=== PATIENT | female | born 1935 | race Caucasian/White ===

== ENCOUNTER 2018-11-09 18:02 | Inpatient (IN) | payer MEDICARE, OTHER ==
[~2018-11-09] VITALS: Ht 154.9 cm; Wt 58.2 kg
[~2018-11-09 18:02] MED LIST: ACET500T33 PO; ALEN70TA5 PO; ASPI-482 PO; CALC1TAB75 PO; CITA20TA6 PO; COD1CAPS2 PO; DONE23TA3 PO; EZET1TAB35 PO; FOLI1TAB16 PO; MEMA10TA PO; MULT-18 PO; OMEP20CA5 PO; POLY17PO5 PO; TOLT4CAP PO; [UNRECOGNIZED DRUG - CODE] PO
[2018-11-09 18:36] LABS: BASO # 0.1 x10^3/uL (0.0-0.2); BASO % 0 % (0-3); EOS # 0.1 x10^3/uL (0.0-0.7); EOS % 1 % (0-3); HEMATOCRIT 39.3 % (36.0-47.0); HEMOGLOBIN 13.3 g/dL (12.0-15.5); LYMPH # 1.4 x10^3/uL (1.0-4.8); LYMPH % 11 % (24-48); MEAN CORPUSCULAR HEMOGLOBIN 30 pg (25-35); MEAN CORPUSCULAR HGB CONC 34 g/dL (31-37); MEAN CORPUSCULAR VOLUME 89 fL (79-100); MONO # 0.7 x10^3/uL (0.0-1.1); MONO % 5 % (0-9); NEUT # 10.9 x10^3uL (1.8-7.7); NEUT % 83 % (31-73); PLATELET COUNT 277 x10^3/uL (140-400); RED BLOOD COUNT 4.41 x10^6/uL (3.50-5.40); RED CELL DISTRIBUTION WIDTH 12.8 % (11.5-14.5); WHITE BLOOD COUNT 13.1 x10^3/uL (4.0-11.0)
[2018-11-09] MEDS ORDERED: IV NORMAL SALINE 1,000ML 1,000 ML IV ONE (18:45)
[2018-11-09 18:47] LABS: ALBUMIN 3.2 g/dL (3.4-5.0); ALBUMIN/GLOBULIN RATIO 0.9 (1.0-1.7); CALCIUM 8.7 mg/dL (8.5-10.1); CREATININE 0.8 mg/dL (0.6-1.0); GFR 68.8; POTASSIUM 3.8 mmol/L (3.5-5.1); TOTAL BILIRUBIN 0.6 mg/dL (0.2-1.0); TOTAL PROTEIN 6.8 g/dL (6.4-8.2)
[2018-11-09 18:57] LABS: INFLUENZA A PATIENT NEGATIVE (NEGATIVE); INFLUENZA B PATIENT NEGATIVE (NEGATIVE)
--- NOTE | 2018-11-09 18:57 | PHYS DOC ---
Adult General Chief Complaint Chief Complaint cough HPI HPI 83 years old female with multiple medical problem including Alzheimer resident and penitent[facility] presented to the emergency department with cough shortness of breath oxygen saturation upon arrival to the emergency department 87% with a temperature of 100.5 patient is a very poor historian and unable to provide any history most of the history was taken from the nurses documentation Review of Systems Review of Systems Limited due to patient's mental status Current Medications Current Medications Current Medications Medications (Trade) Dose Ordered Sig/Ruben Start Time Stop Time Status Last Admin Dose Admin Albuterol Sulfate (Ventolin) 2.5 mg 1X ONCE 11/09/18 19:00 11/09/18 19:01 Levofloxacin/ Dextrose 150 ml @ 150 mls/hr 1X ONCE 11/09/18 19:00 11/09/18 19:59 UNV Methylprednisolone Sodium Succinate (SOLU-Medrol 125MG VIAL) 125 mg 1X ONCE 11/09/18 19:00 11/09/18 19:01 Sodium Chloride 1,000 ml @ 1,000 mls/hr 1X ONCE 11/09/18 18:45 11/09/18 19:44 11/09/18 18:27 1,000 MLS/HR Vancomycin HCl 1 gm/Sodium Chloride 250 ml @ 250 mls/hr 1X ONCE 11/09/18 19:00 11/09/18 19:59 UNV Allergies Allergies Allergies Coded Allergies Type Severity Reaction Last Updated Verified lidocaine Allergy Unknown 10/31/13 Yes Physical Exam Physical Exam [] HENT: Normocephalic, atraumatic, bilateral external ears normal, oropharynx moist, no oral exudates, nose normal. [] Eyes: PERRLA, EOMI, conjunctiva normal, no discharge. [] Neck: Normal range of motion, no tenderness, supple, no stridor. [] Cardiovascular:Heart rate regular rhythm, no murmur [] Lungs & Thorax: Diminished bilaterally wheezing] Abdomen: Bowel sounds normal, soft, no tenderness, no masses, no pulsatile masses. [] Skin: Warm, dry, no erythema, no rash. [] Back: No tenderness, no CVA tenderness. [] Extremities: No tenderness, no cyanosis, no clubbing, ROM intact, no edema. [] Neurologic: Alert and oriented X 3, normal motor function, normal sensory function, no focal deficits noted. [] Psychologic: Affect normal, judgement normal, mood normal. [] Current Patient Data Vital Signs Vital Signs Date Time Temp Pulse Resp B/P (MAP) Pulse Ox O2 Delivery O2 Flow Rate FiO2 11/09/18 18:27 99.3 116 17 90 Nasal Cannula 4.0 Lab Results Laboratory Tests Test 11/09/18 18:15 White Blood Count 13.1 x10^3/uL (4.0-11.0) H Red Blood Count 4.41 x10^6/uL (3.50-5.40) Hemoglobin 13.3 g/dL (12.0-15.5) Hematocrit 39.3 % (36.0-47.0) Mean Corpuscular Volume 89 fL (79-100) Mean Corpuscular Hemoglobin 30 pg (25-35) Mean Corpuscular Hemoglobin Concent 34 g/dL (31-37) Red Cell Distribution Width 12.8 % (11.5-14.5) Platelet Count 277 x10^3/uL (140-400) Neutrophils (%) (Auto) 83 % (31-73) H Lymphocytes (%) (Auto) 11 % (24-48) L Monocytes (%) (Auto) 5 % (0-9) Eosinophils (%) (Auto) 1 % (0-3) Basophils (%) (Auto) 0 % (0-3) Neutrophils # (Auto) 10.9 x10^3uL (1.8-7.7) H Lymphocytes # (Auto) 1.4 x10^3/uL (1.0-4.8) Monocytes # (Auto) 0.7 x10^3/uL (0.0-1.1) Eosinophils # (Auto) 0.1 x10^3/uL (0.0-0.7) Basophils # (Auto) 0.1 x10^3/uL (0.0-0.2) Sodium Level 139 mmol/L (136-145) Potassium Level 3.8 mmol/L (3.5-5.1) Chloride Level 102 mmol/L (98-107) Carbon Dioxide Level 24 mmol/L (21-32) Anion Gap 13 (6-14) Blood Urea Nitrogen 18 mg/dL (7-20) Creatinine 0.8 mg/dL (0.6-1.0) Estimated GFR (Cockcroft-Gault) 68.8 BUN/Creatinine Ratio 23 (6-20) H Glucose Level 118 mg/dL (70-99) H Calcium Level 8.7 mg/dL (8.5-10.1) Total Bilirubin 0.6 mg/dL (0.2-1.0) Aspartate Amino Transferase (AST) 18 U/L (15-37) Alanine Aminotransferase (ALT) 15 U/L (14-59) Alkaline Phosphatase 78 U/L (46-116) Total Protein 6.8 g/dL (6.4-8.2) Albumin 3.2 g/dL (3.4-5.0) L Albumin/Globulin Ratio 0.9 (1.0-1.7) L EKG EKG [] Radiology/Procedures Radiology/Procedures [] Course & Med Decision Making Course & Med Decision Making Pertinent Labs and Imaging studies reviewed. (See chart for details) [] Final Impression Final Impression [] Problems: (1) Lower respiratory tract infection (2) Acute lower respiratory tract infection (3) Nosocomial lower respiratory tract infection Dragon Disclaimer Dragon Disclaimer This electronic medical record was generated, in whole or in part, using a voice recognition dictation system. LATRICE ACKERMAN MD Nov 09, 2018 18:57
[2018-11-09] MEDS ORDERED: ACETAMINOPHEN 325 MG TABLET PO PRN (19:00)
[2018-11-09] MEDS ORDERED: methylPREDNISolone SOD SUCC PF 125 MG/2 ML VIAL. IV ONE (19:00)
[2018-11-09] MEDS ORDERED: VANCOMYCIN 1 GM in IV NORMAL SALINE 250ML 250 ML IV ONE (19:00)
[2018-11-09] MEDS ORDERED: ALBUTEROL SULFATE 2.5 MG/3 ML NEBU. NEB ONE (19:00)
[2018-11-09] MEDS ORDERED: ONDANSETRON PF 4 MG/2 ML VIAL. IV PRN (19:00)
[2018-11-09] MEDS ORDERED: VANCOMYCIN 1 GM VIAL. ONE (19:07)
[2018-11-09] MEDS ORDERED: IV NORMAL SALINE 250ML 250 ML ONE (19:07)
[2018-11-09] MEDS: IV NORMAL SALINE 1,000ML 1,000 ML IV SCH (19:20)
[2018-11-09 19:46] LABS: BILIRUBIN,URINE NEG (NEG); CLARITY,URINE CLEAR; COLOR,URINE YELLOW; GLUCOSE,URINE NEG (NEG); NITRITE,URINE NEG (NEG); UROBILINOGEN,URINE 0.2 mg/dL (0.2 mg/dL)
[2018-11-09 19:47] LABS: BACTERIA,URINE FEW /HPF (0-FEW); RBC,URINE 20-40 /HPF (0-2); SQUAMOUS EPITHELIAL CELL,UR MOD /LPF
[2018-11-09 21:00] VITALS: BP 127/77
[2018-11-09] MEDS ORDERED: MAGN2400 PO (21:52)
[2018-11-09] MEDS ORDERED: HYDR-2155 PO (21:52)
[2018-11-09] MEDS ORDERED: BISA10SU2 RC (21:52)
[2018-11-09] MEDS ORDERED: MAGN400O7 PO (21:52)
[2018-11-09] MEDS ORDERED: SENN-80 PO (21:52)
[2018-11-09] MEDS ORDERED: LORA0.5T PO (21:52)
[2018-11-09 22:56] VITALS: BP 135/69
[2018-11-09] MEDS: IPRATRPIUM/ALBUTEROL 0.5/2.5MG 3 ML NEBU. NEB SCH (22:56)
--- NOTE | 2018-11-10 00:17 | RAD ---
Examination: CHEST AP ONLY History: Short of air, cough, congestion Comparison/Correlation: None Findings: Portable frontal view of the chest was obtained. Heart size and bony vasculature are normal. Minimal right perihilar scarring or linear atelectasis is present. Osteopenia noted. Impression: No focal infiltrate. Electronically signed by: Fareed Bear MD (11/10/2018 12:13 AM) [facility]
--- NOTE | 2018-11-10 04:01 | EKG ---
[address] [address] Test Date: 2018-11-09 Test Time: 19:04:26 Pat Name: ADAM KITCHEN Department: Room: Gender: F Kitchen Runner: PITO: [id number] Requested By: LATRICE ACKERMAN Order Number: [id number] Reading MD: Measurements Intervals [place] Rate: 116 P: -22 AR: 150 QRS: -32 QRSD: 76 T: 63 QT: 360 QTc: 507 Interpretive Statements SINUS TACHYCARDIA ABNORMAL LEFT AXIS DEVIATION LOW LIMB LEAD VOLTAGE LEFT ANTERIOR FASCICULAR BLOCK T ABNORMALITY IN HIGH LATERAL LEADS ABNORMAL ECG RI6.01 Unconfirmed report No previous ECG available for comparison
[2018-11-10] MEDS: IPRATRPIUM/ALBUTEROL 0.5/2.5MG 3 ML NEBU. NEB SCH ×4 (05:27→20:59)
[2018-11-10] MEDS: IV NORMAL SALINE 1,000ML 1,000 ML IV SCH ×4 (05:28→10:16)
[2018-11-10 05:45] VITALS: BP 135/81
[2018-11-10 06:17] LABS: BASO % 0 % (0-3); EOS % 0 % (0-3); HEMATOCRIT 40.1 % (36.0-47.0); HEMOGLOBIN 13.7 g/dL (12.0-15.5); LYMPH # 0.8 x10^3/uL (1.0-4.8); LYMPH % 11 % (24-48); MEAN CORPUSCULAR HEMOGLOBIN 31 pg (25-35); MEAN CORPUSCULAR HGB CONC 34 g/dL (31-37); MEAN CORPUSCULAR VOLUME 91 fL (79-100); MONO # 0.1 x10^3/uL (0.0-1.1); MONO % 1 % (0-9); NEUT # 6.5 x10^3uL (1.8-7.7); NEUT % 88 % (31-73); PLATELET COUNT 236 x10^3/uL (140-400); WHITE BLOOD COUNT 7.4 x10^3/uL (4.0-11.0)
[2018-11-10 06:44] LABS: ALBUMIN 3.3 g/dL (3.4-5.0); ALBUMIN/GLOBULIN RATIO 0.8 (1.0-1.7); CALCIUM 8.6 mg/dL (8.5-10.1); GFR 53.2; POTASSIUM 3.3 mmol/L (3.5-5.1); TOTAL BILIRUBIN 0.6 mg/dL (0.2-1.0); TOTAL PROTEIN 7.3 g/dL (6.4-8.2)
[2018-11-10] MEDS ORDERED: MAGNESIUM HYDROXIDE 2,400 MG/30 ML ORAL.SUSP. PO PRN (06:45)
[2018-11-10] MEDS ORDERED: BISACODYL 10 MG SUPP.RECT PR PRN (06:45)
[2018-11-10] MEDS ORDERED: PIP/TAZO PER PHARMACY MC PRN (07:15)
[2018-11-10] MEDS: NORMAL SALINE IV SCH ×2 (07:21→08:45)
[2018-11-10] MEDS: ASPIRIN 81 MG TAB.CHEW PO SCH (07:53)
[2018-11-10] MEDS: SENNOSIDES 8.6 MG TABLET PO SCH ×2 (07:53→21:00)
[2018-11-10] MEDS: LORazepam 0.5 MG TABLET PO SCH (07:53)
[2018-11-10] MEDS: HYDROcodone/APAP 5/325MG 1 TAB TABLET PO SCH ×2 (07:53→21:29)
[2018-11-10] MEDS: PIPERACILLIN/TAZOBACTAM 3.375 GM in IV NORMAL SALINE 50ML 50 ML IV SCH ×3 (08:27→18:06)
[2018-11-10] MEDS ORDERED: POLYETHYLENE GLYCOL 3350 17 GM PACKET. PO PRN (09:00)
[2018-11-10] MEDS ORDERED: MAGNESIUM HYDROXIDE 2,400 MG/30 ML ORAL.SUSP. PO SCH (09:00)
[2018-11-10] MEDS ORDERED: BENZONATATE 100 MG CAPSULE. PO SCH (09:00)
[2018-11-10] MEDS ORDERED: BENZONATATE 100 MG CAPSULE. PO PRN (09:00)
[2018-11-10] MEDS: guaiFENesin DM 200MG/20MG 10 ML SYRUP PO PRN ×2 (09:44→21:30)
[2018-11-10 11:08] VITALS: BP 132/58
[2018-11-10 14:49] VITALS: BP 117/79
--- NOTE | 2018-11-10 15:17 | HP ---
ADMIT DATE: 11/09/2018 HISTORY OF PRESENT ILLNESS: The patient is an 83-year-old female patient, a resident at [facility] and [facility], whom I have seen there yesterday per the nursing staff request she was febrile and clearly very delirious and therefore I recommended the patient be transferred to the Emergency Room for further evaluation and treatment. She was indeed seen in the Emergency Room of [facility] where she was evaluated, where she was found to have mild leukocytosis. She was slightly tachypneic, tachycardic and her urinalysis showed that it was in fact unremarkable. Chest x-ray was unremarkable. Her influenza A and B were negative. The patient was admitted with diagnosis of sepsis as her lactic acid was high at 2.6 and was admitted with a questionable healthcare-associated pneumonia and was treated with IV vancomycin, Zosyn and Levaquin. PAST MEDICAL HISTORY: Significant for anxiety, osteoporosis, osteoarthritis and severe dementia. PAST SURGICAL HISTORY: Significant for she underwent left hip pinning. ALLERGIES: SHE IS ALLERGIC TO LIDOCAINE. MEDICATIONS: She is currently on following medications: She is on aspirin 81 mg once a day, hydrocodone/APAP 1 tablet every twice a day, lorazepam 0.5 mg daily, bisacodyl 10 mg rectally daily p.r.n. for constipation, milk of magnesia 30 mL p.o. daily p.r.n., polyethylene glycol 17 grams daily and senna 1 tablet twice a day. FAMILY HISTORY: Noncontributory. SOCIAL HISTORY: She is a resident at [facility] and [facility]. She does not smoke, drink alcohol or use any recreational drugs. Her daughter is her DPOA. REVIEW OF SYSTEMS: Unobtainable. The patient is extremely demented. PHYSICAL EXAMINATION: GENERAL: On arrival to the Emergency Room, the patient was somewhat delirious, pale, but no jaundice or cyanosis. No lymphadenopathy, no thyromegaly. No jugular venous distension. No lower limb edema. VITAL SIGNS: Her heart rate was 116, blood pressure was 144/75, temperature was 99.3, respiratory rate was 17 and oxygen saturation was 90% on 4 liters of oxygen. HEAD, EYES, EARS, NOSE AND THROAT: Showed normocephalic, atraumatic. NECK: Supple. HEART: Showed normal first and second heart sounds. No gallop, rub or murmur. CHEST: Clear to auscultation. No crepitation or rhonchi. ABDOMEN: Slightly distended, soft, nontender. NEUROLOGIC: She is extremely demented without any obvious lateralizing sign. All cranial nerves intact. EXTREMITIES: She moves extremities spontaneously. However, she is mostly bedbound, chair bound. LABORATORY DATA: Her lab work showed a white cell count of 13,100, hemoglobin 13, hematocrit 39, MCV 89 and platelet count of 277,000 with normal manual differential. Her chemistry showed a serum sodium 139, potassium 3.8, chloride 102, bicarbonate 24, anion gap of 13, BUN 18, creatinine 0.8, estimated GFR was 68 mL per minute. Her glucose 111, calcium was 8.7. Total bilirubin, AST, ALT, alkaline phosphatase were normal. Her total protein was 6.8, albumin 3.2. Urinalysis showed the urine was yellow, clear with a pH of 7, specific gravity of 1.020. There was trace of protein. The urine was negative for glucose, ketones, moderate amount of blood, negative for nitrite and bilirubin as well as leukocyte esterase. There were 20-40 rbc's and 1-4 wbc's and very few bacteria. Her nasal screen for MRSA by PCR was negative and her influenza A and B were negative. Her chest x-ray showed that the heart size and pulmonary vasculature are normal. Minimal right perihilar scarring. Linear atelectasis present. Osteopenia is noted. ASSESSMENT AND PLAN: The patient was admitted and was started on all her other medication. Start her also on Zosyn, vancomycin as well as Levaquin. After obtaining the urine and blood culture. HECTOR RUST MD DR: EMEKA/aide JOB#: [id number] / [id number]
--- NOTE | 2018-11-10 19:20 | PN ---
DATE: 11/10/2018 SUBJECTIVE: The patient is resting, slightly propped up in bed, in no apparent respiratory distress. She is awake, alert, but continued to be confused. The patient said that she has episodes of agitation. OBJECTIVE: GENERAL: When I examined her, she was slightly pale, but no jaundice, cyanosis, or thyromegaly. No jugular venous distension. No limb edema. VITAL SIGNS: Her heart rate was 106, blood pressure 132/58, temperature was 98.1, respiratory rate 20, and oxygen saturation was 93% on 2 liters of oxygen by nasal cannula. HEAD, EYES, EARS, NOSE AND THROAT: Showed normocephalic, atraumatic. NECK: Supple. HEART: Showed normal first and second heart sounds. No gallop, rub or murmur. CHEST: Clear to auscultation. No crepitation or rhonchi. ABDOMEN: Distended, soft, nontender. No guarding or rigidity. No organomegaly. Hernial orifice intact. Bowel sounds normal. NEUROLOGIC: She is demented without any obvious lateralizing signs. Cranial nerves intact. She moves her upper extremities and lower extremities; however, she is mostly bedbound, chair bound. Her intake was 2380, output was 1250. LABORATORY DATA: Her lab work this morning showed his serum sodium 343, potassium 3.3, chloride 104, bicarbonate 20, anion gap of 19, BUN 12, creatinine 1, estimated GFR was 53 mL per minute. Her glucose 165. Her lactic acid has risen further. In fact, this morning it was 6.9, calcium was 8.6. Total bilirubin, AST, ALT, alkaline phosphatase were normal. Total protein was 7.3, albumin 3.3. The patient was treated with the sepsis protocol, received about 2 liters of fluid. We will continue with IV antibiotic. Await the result of the culture and sensitivity. ASSESSMENT: Sepsis, with hypertension and lactic acidosis for which she is on IV antibiotic and received IV fluid boluses. The source of sepsis is most likely pneumonia. Her urinalysis was essentially unremarkable. I will repeat her labs and lactic acid again and also repeat chest x-ray. HECTOR RUST MD DR: EMEKA/aide JOB#: [id number] / [id number]
[2018-11-10 19:49] VITALS: BP 125/87
[2018-11-10] MEDS ORDERED: VANCOMYCIN PER PHARMACY MC PRN (20:30)
[2018-11-10] MEDS ORDERED: VANCOMYCIN 1 GM in IV NORMAL SALINE 250ML 250 ML IV SCH (21:00)
[2018-11-10 22:52] VITALS: BP 125/82
[2018-11-11] MEDS: PIPERACILLIN/TAZOBACTAM 3.375 GM in IV NORMAL SALINE 50ML 50 ML IV SCH ×2 (00:09→05:51)
[2018-11-11] MEDS: guaiFENesin DM 200MG/20MG 10 ML SYRUP PO PRN (04:20)
[2018-11-11] MEDS ORDERED: IPRATRPIUM/ALBUTEROL 0.5/2.5MG 3 ML NEBU. ONE (05:09)
[2018-11-11] MEDS: IPRATRPIUM/ALBUTEROL 0.5/2.5MG 3 ML NEBU. NEB SCH ×2 (05:20→11:07)
[2018-11-11 05:41] VITALS: BP 102/71
[2018-11-11] MEDS ORDERED: IV NORMAL SALINE 1,000ML 1,000 ML IV SCH (06:00)
[2018-11-11 06:36] LABS: BASO % 0 % (0-3); EOS # 0.1 x10^3/uL (0.0-0.7); EOS % 1 % (0-3); HEMATOCRIT 33.8 % (36.0-47.0); HEMOGLOBIN 11.4 g/dL (12.0-15.5); LYMPH # 1.8 x10^3/uL (1.0-4.8); LYMPH % 16 % (24-48); MEAN CORPUSCULAR HEMOGLOBIN 31 pg (25-35); MEAN CORPUSCULAR HGB CONC 34 g/dL (31-37); MEAN CORPUSCULAR VOLUME 90 fL (79-100); MONO # 0.7 x10^3/uL (0.0-1.1); MONO % 6 % (0-9); NEUT # 8.8 x10^3uL (1.8-7.7); NEUT % 77 % (31-73); PLATELET COUNT 245 x10^3/uL (140-400); RED BLOOD COUNT 3.75 x10^6/uL (3.50-5.40); RED CELL DISTRIBUTION WIDTH 13.3 % (11.5-14.5); WHITE BLOOD COUNT 11.3 x10^3/uL (4.0-11.0)
[2018-11-11 06:38] LABS: CALCIUM 8.3 mg/dL (8.5-10.1); GFR 53.2; MAGNESIUM 1.9 mg/dL (1.8-2.4); POTASSIUM 3.6 mmol/L (3.5-5.1)
[2018-11-11] MEDS: SENNOSIDES 8.6 MG TABLET PO SCH (08:24)
[2018-11-11] MEDS: HYDROcodone/APAP 5/325MG 1 TAB TABLET PO SCH (08:26)
[2018-11-11] MEDS: LORazepam 0.5 MG TABLET PO SCH (08:26)
[2018-11-11] MEDS: ASPIRIN 81 MG TAB.CHEW PO SCH (08:26)
[2018-11-11] MEDS ORDERED: LACTOBACILLUS RHAMNOSUS GG 1 CAPSULE. PO SCH (09:00)
[2018-11-11] MEDS ORDERED: MORPHINE SULFATE 2 MG/ML DISP.SYRIN. IV PRN (11:15)
[2018-11-11] MEDS ORDERED: LORazepam 2 MG/ML VIAL IV PRN (11:15)
[2018-11-11] MEDS ORDERED: IPRATRPIUM/ALBUTEROL 0.5/2.5MG 3 ML NEBU. NEB PRN (11:15)
[2018-11-11] MEDS ORDERED: SCOPOLAMINE 1.5MG PATCH. TD SCH (11:30)
[2018-11-11 14:56] VITALS: BP 141/77
--- NOTE | 2018-11-11 15:48 | DS ---
DATE OF DISCHARGE: 11/11/2018 HOSPITAL COURSE: The patient is an 83-year-old female patient, who was admitted with sepsis, lactic acidosis, leukocytosis and we did langston culture her and start her on IV antibiotic for healthcare-associated pneumonia. She actually did well; however, her daughter decided to go on comfort care and hospice care and a decision was made to discharge her back to [facility] to go on hospice. We will discontinue all her antibiotics and all other medication. She will be started on Roxanol, Ativan and scopolamine patch. PHYSICAL EXAMINATION: GENERAL: When I saw her this afternoon, she looked well and was clearly in no apparent respiratory distress, pale, and cachectic, but no jaundice, cyanosis, or thyromegaly. No jugular venous distension. No limb edema. VITAL SIGNS: Her heart rate was 72, blood pressure was 102/71, temperature was 98.3, respiratory rate 24 and oxygen saturation was 94% on room air. HEAD, EYES, EARS, NOSE AND THROAT: Normocephalic, atraumatic. NECK: Supple. HEART: Showed normal first and second heart sounds with no gallop, rub or murmur. CHEST: Clear to auscultation. No crepitation or rhonchi. ABDOMEN: Distended, soft, nontender. No guarding or rigidity. No organomegaly. All hernial orifices intact. Bowel sounds normal. NEUROLOGIC: She is demented without any obvious lateralizing sign. All her cranial nerves intact. She moves upper extremities to much good extent in the lower extremity. She is mostly bedbound, chair bound. Her intake was 2080 and output was 1250. LABORATORY DATA: As of this morning, her serum sodium was 147, potassium 3.6, chloride 112, bicarbonate 24, anion gap of 11, BUN 17, creatinine 1, estimated GFR was 53 mL per minute. Her glucose was 101, calcium was 8.3, and magnesium was 1.9. Her lactate dehydrogenase was 152. Her white cell count is 11,300, hemoglobin 11, hematocrit 33, MCV 90 and platelet count 245. DISCHARGE MEDICATIONS: She was discharged back to [facility] to continue on Roxanol 20 mg per mL solution to give 0.25-1 mL that is 5-20 mg p.o. sublingually every 2 hours, Ativan 2 mg per mL concentrate to give 0.25-1 mL that is 0.5-2 mg p.o. sublingually every 2 hours for anxiety and scopolamine patch 1.5 mg topically q. 72 hours. FINAL DISCHARGE DIAGNOSES: Severe sepsis with lactic acidosis, healthcare-associated pneumonia, acute hypoxic respiratory failure. OTHER MEDICAL PROBLEMS: Include severe dementia, osteoporosis, osteoarthritis, anxiety and depression. HECTOR RUST MD DR: EMEKA/aide JOB#: [id number] / [id number]
== END 2018-11-11 16:21 | disposition hospice, inpatient (51) | DRG 871 ==
LOC: ER 18:02 → 1 SOUTH 18:50
PROVIDERS: ADMIT Internal Medicine; ATTEND Internal Medicine
DX: A41.9 Sepsis, unspecified organism (principal); J18.9 Pneumonia, unspecified organism; J96.01 Acute respiratory failure with hypoxia; J98.11 Atelectasis; F32.9 Major depressive disorder, single episode, unspecified; F41.9 Anxiety disorder, unspecified; I10 Essential (primary) hypertension; M19.90 Unspecified osteoarthritis, unspecified site; M81.0 Age-related osteoporosis without current pathological fracture; R65.20 Severe sepsis without septic shock; Y95 Nosocomial condition; Z51.5 Encounter for palliative care; F02.80 Dementia in other diseases classified elsewhere, unspecified severity, without behavioral disturbance, psychotic disturbance, mood disturbance, and anxiety; G30.9 Alzheimer's disease, unspecified; Z88.8 Allergy status to other drugs, medicaments and biological substances; M85.80 Other specified disorders of bone density and structure, unspecified site; Z74.01 Bed confinement status
CPT/HCPCS: 36415; 51702; 71045; 80048; 80053; 81001; 83605; 83615; 83735; 85025; 87040; 87641; 87804; 93005; 94640; 96361; 96365; 96368; 96375; J1956; J2060; J2270; J2543; J2930; J3370; J7050; J7613; J7620; 99285-25; J7030